=== PATIENT | female | born 1975 | race Caucasian/White ===

== ENCOUNTER 2017-04-02 14:50 | Emergency (ER) | payer OTHER ==
[~2017-04-02] VITALS: Ht 165.1 cm; Wt 70.3 kg
[~2017-04-02 14:50] MED LIST: ACETAMINOPHEN325 M1 PO; ACTICIN 5% CREA60 G1 TOP; ALBUTEROL2.5 MG/0.1 INH; ALBUTEROL2.5 MG/31 INH; AZITHROMYCIN 2250 MG PO; CALCIUM CITRAT250 MG PO; CARISOPRODOL 3350 MG PO; CIPRO250 M2 PO; CLONAZEPAM; CLONAZEPAM 1 MG1 M1 PO; DEPAKOTE ER500 MG PO; ENOXAPARIN30 MG/0.3 SUBQ; FOLIC ACID0.8 MG PO; HYDROCODONE-AP1 EAC6 PO; HYDROMORPHO1 MG/1 M4 IV PUSH; IMITREX PO; LORAZEPAM 1 MG T1 MG IV PUSH; MAXALT PO; MEDROLDOSEPACK PO; MEGA BIOTIN10000 MCG PO; MOMETASONE FURO60 ML TP; NORCO 5-325 TA1 EACH PO; ONDANSETRON HCL4 M2 PO; ONFI5 MG PO; PERCOCET 5-3251 EACH PO; PHENERGAN-CODE120 ML PO; PRAZOSIN PO; PREDNISONE 20 M20 M1 PO; PREDNISONE50 MG PO; PROTONIX40 M2 PO; ROBAXIN500 MG PO; TESSALON PERLE100 MG PO; VALIUM5 MG PO; VIMPAT1 EACH PO; VINPAT; VITAMIN B-1250 MC2 PO; VITAMIN D1000 UNI1 PO; ZOFRAN ODT4 MG PO; ZOFRAN4 MG IV PUSH; ZOFRAN4 MG PO; ZOLOFT 50 MG TA50 M1 PO; ZOMIG ZMT5 MG PO; ZONEGRAN100 MG; ZONEGRAN100 MG PO; ZPAK PO
[2017-04-02] MEDS ORDERED: CARISOPRODOL 3350 MG PO (15:22)
[2017-04-02 17:47] VITALS: BP 120/82
== END 2017-04-02 17:48 | disposition home or self-care (01) ==
LOC: M.ERS 14:50
DX: G43.909 Migraine, unspecified, not intractable, without status migrainosus (principal); G89.29 Other chronic pain; M54.5 Low back pain; Z88.1 Allergy status to other antibiotic agents; Z88.6 Allergy status to analgesic agent; Z88.5 Allergy status to narcotic agent; Z88.0 Allergy status to penicillin; Z88.8 Allergy status to other drugs, medicaments and biological substances

== ENCOUNTER 2017-08-01 20:34 | Inpatient (IN) | payer OTHER ==
[~2017-08-01] VITALS: Ht 165.1 cm; Wt 75.7 kg
[2017-08-01 20:53] VITALS: BP 112/67
[2017-08-01 20:57] LABS: URINE BILIRUBIN NEGATIVE (Negative); URINE BLOOD NEGATIVE (Negative); URINE CLARITY CLEAR; URINE COLOR YELLOW; URINE GLUCOSE-RANDOM NEGATIVE (Negative); URINE KETONES NEGATIVE (Negative); URINE LEUKOCYTES-REFLEX NEGATIVE (Negative); URINE NITRITE-REFLEX NEGATIVE (Negative); URINE PROTEIN NEGATIVE (Negative); URINE SPECIFIC GRAVITY 1.025 (1.005-1.030); URINE UROBILINOGEN 0.2 E.U./dl (0.2-1.0)
[2017-08-01 21:13] LABS: ABSOLUTE EOSINOPHILS 0.6 thou/uL (0.0-0.7); ABSOLUTE LYMPHOCYTES 2.4 thou/uL (0.8-5.3); ABSOLUTE MONOCYTES 0.6 thou/uL (0.0-1.2); ABSOLUTE NEUTROPHILS 4.9 thou/uL (1.6-8.1); BASOPHILS 0.4 %; EOSINOPHILS 7.5 %; HEMATOCRIT 37.7 % (37.0-47.0); HEMOGLOBIN 12.8 gm/dL (12.0-15.0); LYMPHOCYTES 27.9 %; MCH 31.4 pg (26.0-34.0); MCHC 33.9 g/dL (28.0-37.0); MCV 92.7 fL (80.0-100.0); MONOCYTES 7.5 %; MPV 8.2 fl. (7.2-11.1); NUCLEATED RBCS 0 /100WBC; PLATELET COUNT* 281 thou/uL (150-400); POLYS 56.7 %; RBC 4.06 mil/uL (4.20-5.00); RDW-CV 13.4 % (10.5-14.5); WBC 8.6 thou/uL (4.0-11.0)
[2017-08-01 21:20] LABS: CALCIUM 7.7 mg/dL (8.5-10.1); CREATININE 1.2 mg/dL (0.6-1.3); POTASSIUM 3.7 mmol/L (3.5-5.1)
[2017-08-01 21:25] LABS: ALBUMIN 3.9 g/dL (3.4-5.0); TOTAL BILIRUBIN 0.4 mg/dL (<0.1-1.0); TOTAL PROTEIN 6.9 g/dL (6.4-8.2)
[2017-08-01 23:19] VITALS: BP 115/74
[2017-08-01 23:20] VITALS: BP 101/68
--- NOTE | 2017-08-02 04:58 | NUR ---
PATIENT ARRIVED ON UNIT VIA ER CART AT 2320. ORIENTED TO UNIT AND CALL LIGHT. VITAL SIGNS STABLE ON ROOM AIR. IV PATENT IN THE LEFT AC INFUSING AT 100 ML/ HR. PAIN MANAGED WITH IV MEDICATION PER ORDERS. NAUSEA MANAGED WITH IV MEDICATION PER ORDERS. TRANSFERRING WITH STANDBY ASSIST TO THE RESTROOM. RESTING COMFORTABLY THROUGHOUT NIGHT. REPOSITIONING SELF IN BED. HOURLY ROUNDING COMPLETE. CALL LIGHT WITHIN REACH. NURSING WILL CONTINUE TO MONITOR.
[2017-08-02 08:00] VITALS: BP 111/80
[2017-08-02 15:36] VITALS: BP 113/74
--- NOTE | 2017-08-02 18:48 | NUR ---
ALERT AND ORIENTED X4. UP STAND BY ASSIST IN ROOM. IV IS PATENT AND INFUSING. PAIN BEING MANAGED WITH IV AND PO PAIN MEDICATION. NAUSEA BEING MANAGED WITH IV MEDICATION. PATIENT NOTICED SEVERE ITCHING AND REDDNESS ON HER ABDOMEN. PROVIDER NOTIFIED, ORDERS RECIEVED. VSS ON ROOM AIR. HOURLY ROUNDS HAVE BEEN MAINTAINED THROUGHOUT SHIFT. CALL LIGHT IS WITHIN REACH. NURSING WILL CONTINUE TO MONITOR.
[2017-08-02 20:45] VITALS: BP 130/92
[2017-08-02 23:35] VITALS: BP 102/58
--- NOTE | 2017-08-03 05:17 | NUR ---
PATIENT REMAINS ALERT AND ORIENTED X4 THROUGHOUT SHIFT. VITAL SIGNS STABLE ON ROOM AIR. PATIENT REQUESTED IV TO BE MOVED. IV PATENT IN THE RIGHT FOREARM INFUSING AT 150 ML/HR. PAIN AND NAUSEA MANAGED WITH IV AND PO MEDICATION PER ORDERS. TRANSFERS WITH STANDBY ASSIST TO THE RESTOOM. VERBALIZED DISCOMFORT IN THE RIGHT LOWER FLANK THAT RADIATED TO UMBILICAL AREA. PHYSICIAN CONTACTED. CT OF ABDOMEN COMPLETE PER ORDERS, RESULTS IN PATIENT CHART. REPOSITIONING SELF IN BED. HOURLY ROUNDING COMPLETE. BED IN LOW POSITION. CALL LIGHT WITHIN REACH. WILL CALL FOR ASSISTANCE.
[2017-08-03 08:30] VITALS: BP 121/84
[2017-08-03 10:27] LABS: ABSOLUTE EOSINOPHILS 0.2 thou/uL (0.0-0.7); ABSOLUTE LYMPHOCYTES 1.9 thou/uL (0.8-5.3); ABSOLUTE MONOCYTES 0.2 thou/uL (0.0-1.2); ABSOLUTE NEUTROPHILS 3.6 thou/uL (1.6-8.1); BASOPHILS 0.3 %; EOSINOPHILS 3.1 %; HEMATOCRIT 31.4 % (37.0-47.0); LYMPHOCYTES 31.5 %; MCH 32.2 pg (26.0-34.0); MCHC 34.6 g/dL (28.0-37.0); MCV 93.2 fL (80.0-100.0); MONOCYTES 3.9 %; MPV 8.4 fl. (7.2-11.1); NUCLEATED RBCS 0 /100WBC; PLATELET COUNT* 215 thou/uL (150-400); POLYS 61.2 %; RBC 3.37 mil/uL (4.20-5.00); RDW-CV 13.1 % (10.5-14.5); WBC 5.9 thou/uL (4.0-11.0)
[2017-08-03 10:34] LABS: CALCIUM 7.3 mg/dL (8.5-10.1); CREATININE 0.7 mg/dL (0.6-1.3); POTASSIUM 3.3 mmol/L (3.5-5.1)
[2017-08-03 10:36] LABS: HEMOGLOBIN 10.8 gm/dL (12.0-15.0)
[2017-08-03 17:26] VITALS: BP 105/75
[2017-08-03 20:45] VITALS: BP 103/60
--- NOTE | 2017-08-03 21:14 | NUR ---
ASSUMED CARES OF PT AT 0700. PT IN BED, BED IN LOW LOCKED POSITION. CALL BUTTON AND PERSONAL ITEMS IN PT REACH. PT A&O X4, HRRR PER AUSCULTATION/OCC. BRADYCARDIA EXHIBITED, LCTAB, VSS ON RA, AFEBRILE, PERRLA. SCATTERED SCARS FROM RECENT SURGERYS, SCATTERED BRUISING. FAINT RASH ON ABD AREA/ITCHY. SEIZURE PRECAUTIONS R/T HX OF SEIZURES. UP SBA/INDEPENDENT TO BATHROOM. URINE STRAINED. RIGHT FA 22 GAUGE, NS STARTED SHIFT AT 150 HR, REDUCED PER DR. RODRIGUEZ TO 100 ML/HR. KPAD FOR ABD. PAIN VERY DIFFICULT TO CONTROL, OCC. NAUSEA. PT OFTEN WEEPY AND SAD. PAIN MEDS NOT VERY EFFECTIVE THIS SHIFT. PT SCHEDULED TO HAVE KIDNEY STONE REMOVED TOMORROW MORNING. NPO AT MIDNIGHT. HOURLY ROUNDING COMPLETED. REPORT TO SMALL BATTERY PLATE ASSEMBLER FOR CONTINUED CARES. SPOUSE TO STAY THE NIGHT ON COT.
[2017-08-04 03:58] VITALS: BP 103/60
[2017-08-04 06:11] VITALS: BP 103/60
--- NOTE | 2017-08-04 06:12 | NUR ---
PATIENT HAS SLEPT WELL THROUGHOUT THE NIGHT WITHOUT ANY ISSUES. VSS ON RA. PAIN WELL CONTROLLED. MEDICATIONS GIVEN AND CHARTED. PATIENT HAS REMAINED NPO FOR PROCEDURE THIS AM. URINE STRAINED AND NO STONES RETRIEVED. IV IN RIGHT FOREARM-NS @ 100ML. PATIENT INSTRUCTED TO USE CALL LIGHT WHEN NEEDING ASSISTANCE. HOURLY ROUNDS MADE. WILL CONTINUE WITH PLAN OF CARE AND NURSING TO MONITOR.
[2017-08-04 06:47] VITALS: BP 129/81
[2017-08-04 12:26] VITALS: BP 112/79
[2017-08-04 19:30] VITALS: BP 110/76
--- NOTE | 2017-08-04 19:56 | NUR ---
PATIENT REMAINED ALERT AND ORIENTED X'S 4. VITAL SIGNS AND SPO2 STABLE. PATIENT WAS SUPPOSED TO LEAVE AFTER SURGERY BUT PAIN WAS OUT OF CONTROL. GAVE PATIENT PAIN MEDS Q.2 AND FINALLY GOT PAIN DOWN TO A TOLERABLE LEVEL. VOIDED WITHOUT ISSUE, URINE CLEAR YELLOW, NO CLOTS. TOLERATED DIET, NO NAUSEA AND VOMITING. COMPLETED HOURLY ROUNDING. CALL LIGHT WITHIN REACH. WILL CONTINUE TO MONITOR.
[2017-08-05 00:46] VITALS: BP 110/74
[2017-08-05 04:37] VITALS: BP 107/65
--- NOTE | 2017-08-05 05:45 | NUR ---
PATIENT HAS REMAINED ALERT AND ORIENTED X 4 THROUGHOUT THE SHIFT AND RESTING AT INTERVALS. HAVE UTILIZED ALL AVAILABLE PAIN TREATMENT MODALITIES TONIGHT. DILAUDID IV Q2H. VOIDING CAUSING ACUTE INCREASE IN PAIN. CRYING IF VOIDS OCCURING AT END OF THAT 2 HOURS. NOTING SPASMS AT TIMES THAT CAUSE PATIENT TO LEAK URINE. LEVSIN AND PYRIDIUM BOTH PROVIDED. TAKING ORAL FLUIDS WITHOUT NAUSEA. IVF'S PER ORDERS. URINE PINK TINGED WITHOUT STONE FRAGMENTS. MOST RECENT VOID NOW ORANGE DUE TO PYRIDIUM. DID COMPLETE ONE POST-VOID BLADDER SCAN. VOID 100 ML WITH RESIDUAL BY SCAN 17 ML. THIS SCAN WAS COMPLETED AT 0500. VITAL SIGNS STABLE. CONTINUE TO MONITOR.
[2017-08-05 08:00] VITALS: BP 123/85
[2017-08-05 16:09] VITALS: BP 106/70
--- NOTE | 2017-08-05 19:55 | NUR ---
ALERT AND ORIENTED X4. UP AD ELI IN ROOM. IV IS PATENT AND INFUSING. PAIN BEING MANAGED WITH PO AND RECTAL MEDICATION. DENIES NAUSEA. TOLERATING DIET. VSS ON ROOM AIR. HOURLY ROUNDS HAVE BEEN MAINTAINED THROUGHOUT SHIFT. CALL LIGHT IS WITHIN ROOM. CALL LIGHT IS WITHIN REACH. NURSING WILL CONTINUE TO MONITOR.
[2017-08-05 20:45] VITALS: BP 126/82
[2017-08-06 00:49] VITALS: BP 111/77
[2017-08-06 04:39] VITALS: BP 106/71
--- NOTE | 2017-08-06 08:11 | NUR ---
PATIENT HAS SLEPT WELL THROUGHOUT THE NIGHT. PAIN WELL CONTROLLED. VSS ON RA. PATIENT IS UP AD-ELI AND STEADY. NEW IV INSERTED IN RIGHT FOREARM-NS @ 100ML/HR. PATIENT INSTRUCTED TO USE CALL LIGHT WHEN NEEDING ASSISTANCE. HOURLY ROUNDS MADE. WILL CONTINUE WITH PLAN OF CARE AND NURSING TO MONITOR.
[2017-08-06 08:45] VITALS: BP 122/81
[2017-08-06] MEDS ORDERED: ACYCLOVIR 400400 MG PO (12:24)
[2017-08-06] MEDS ORDERED: HYDROCODONE-ACE15 ML PO (12:26)
[2017-08-06] MEDS ORDERED: CIPRO500 MG PO (12:28)
[2017-08-06] MEDS ORDERED: LEVSIN0.125 MG PO (13:07)
[2017-08-06] MEDS ORDERED: PHENAZOPYRIDIN200 M2 PO (13:09)
[2017-08-06] MEDS ORDERED: ZOLOFT50 MG PO (13:11)
[2017-08-06] MEDS ORDERED: MILK OF MA2400 MG/10 PO (13:14)
[2017-08-06] MEDS ORDERED: BELLADONNA-OPI1 EACH RECTAL (13:18)
[2017-08-06 13:23] VITALS: BP 122/81
[2017-08-06] MEDS ORDERED: HYDROCODONE-AP1 EAC6 PO (13:48)
[2017-08-06 14:10] VITALS: BP 122/81
--- NOTE | 2017-08-06 14:11 | NUR ---
PATIENT DISCHARGED FROM UNIT AT 1405. ALERT AND ORIENTED X 4. VITAL SIGNS STABLE ON ROOM AIR. UP AD ELI IN ROOM. IV DISCONTINUED. DENIES PAIN AND NAUSEA. DISCHARGED INSTRUCTIONS, MEDICATION INFORMATION, AND SCRIPTS GIVEN TO PATIENT. LEFT WITH ALL BELONGINGS. PATIENT DISCHARGED WITH SIGNIFICANT OTHER VIA TRUCK.
--- NOTE | 2017-08-21 13:20 | OP ---
[address] [address] OPERATIVE REPORT Name: RENY SANDOVAL Room: [address]#: [id number] Admission: 08/01/17 Attend Phys: Ramiro Hernandez Discharge: 08/06/17 Date of : 77 Report #: [id number] THIS REPORT FOR: //name// CC: Flower Arce DATE OF SERVICE: 08/04/2017 PREOPERATIVE DIAGNOSIS: Obstructing left ureterovesical junction calculus. POSTOPERATIVE DIAGNOSIS: Obstructing left ureterovesical junction calculus. PROCEDURES PERFORMED: 1. Cystoscopy with left retrograde pyelogram. 2. Left ureteroscopy with laser lithotripsy. 3. Stone retrieval. 4. Left 4.8 x 28 double-J ureteral stent placement. SURGEON: Bulmaro Figueredo MD ANESTHESIA: General endotracheal. BRIEF HISTORY: The patient is a 42-year-old female who presented to [facility] with left-sided flank pain. CT imaging demonstrated the presence of a 4 x 8 mm left ureterovesical junction calculus. After discussion of available management options, the patient elected ureteroscopic management due to persistent pain. She is scheduled for cystoscopy with left retrograde pyelogram, left ureteroscopy with laser lithotripsy, stone retrieval, and stent placement. The risks of the procedure including the risks of bleeding, infection, damage to surrounding structures, need for additional procedures, and anesthetic risks were discussed with the patient and she wished to proceed. PROCEDURE IN DETAIL: The risks and benefits of surgery were discussed with the patient and she wished to proceed. Informed consent was obtained and the patient was transferred to the operating room, where she was laid supine on the operating room table. After the induction of adequate general endotracheal anesthesia and the administration of appropriate preoperative antibiotics, the patient's legs were placed in a modified dorsal lithotomy position, taking care to pad all pressure points and avoid any hyperextension or hyperflexion of her joints. The patient's genitalia were prepped and draped in the usual sterile fashion. A timeout was then performed to ensure correct patient and procedure. At this time, a 22-Nepali cystoscope sheath with a 30-degree lens was lubricated and advanced under direct vision and irrigation through the urethra and into the bladder. A urine specimen was obtained and was passed off the table for culture and sensitivity. The cystoscope was disarticulated and the bladder was drained. Cystoscopy was performed under direct vision and [place] [address] OPERATIVE REPORT Name: RENY SANDOVAL Room: [address]#: [id number] Admission: 08/01/17 Attend Phys: Ramiro Hernandez Discharge: 08/06/17 Date of : 77 Report #: [id number] 30-degree and 70-degree lens. The patient's ureteral orifices were found to be in their normal anatomic location. There was some mild edema and erythema about the left ureteral orifice, consistent with the presence of a stone. Systematic panendoscopy revealed no gross bladder wall pathology. There were no papillary bladder tumors or suspicious mucosal lesions identified. At this time, a 5-Nepali Pollack catheter was placed into the patient's left ureteral orifice and a left retrograde pyelogram was performed. Contrast could be seen filling the distal ureter, a distance of approximately 1 cm, at which point there was a radiopaque filling defect, consistent with the stone previously observed on CT imaging. Contrast progressed beyond the stone and filled a mild to moderately ectatic mid and proximal ureter. A 0.038 ZIPwire was then advanced through the Pollack catheter and beyond the calculus until it was seen to coil within the left collecting system under fluoroscopy. The Pollack catheter and cystoscope were removed, leaving the wire in place as a safety wire. The rigid ureteroscope was then advanced under direct vision and pressure flow irrigation without difficulty into the left ureteral orifice. The patient's stone was immediately encountered and was found to be impacted within the ureteral side wall. A 365 micron laser fiber was advanced through the ureteroscope and laser lithotripsy was performed on the calculus, fragmenting it into multiple smaller pieces. Many of the fragments passed out of the ureter into the bladder in an antegrade fashion. A few remaining fragments were grasped and removed with a 0 tip nitinol basket. Once all basketable stone fragments had been removed from the distal ureter, the ureteroscope was able to be advanced to the mid ureter and beyond the iliacs. There were no basketable stone fragments identified. The ureteroscope was withdrawn back to the ureterovesical junction and similarly there were no remaining basketable stone fragments. Prior to withdrawing the ureteroscope entirely, a retrograde pyelogram was performed, which demonstrated patency and integrity of the ureter and collecting system and delineated the collecting system for stent placement. The ureteroscope was removed and a 4.8 x 28 double-J ureteral stent was advanced over the safety wire and into position. The wire was withdrawn, deploying the stent. A good coil of the stent was identified within the left renal pelvis under fluoroscopy and a good coil of the stent was identified within the bladder under direct vision with the cystoscope. The cystoscope was disarticulated and the bladder was drained. Stone fragments, which had been dropped into the bladder, were evacuated out and passed off the table for stone analysis. The patient's urethra was anesthetized with 2% lidocaine jelly and a B and O suppository was placed per rectum. The patient was then returned to a supine position, awakened from anesthesia, and transferred to the postoperative care unit in stable condition. The patient tolerated the procedure well. COMPLICATIONS: None. ESTIMATED BLOOD LOSS: Less than 5 mL. IV FLUIDS: [place] [address] OPERATIVE REPORT Name: RENY SANDOVAL Kadeem Room: [address]#: [id number] Admission: 08/01/17 Attend Phys: Ramiro Hernandez Discharge: 08/06/17 Date of : 77 Report #: [id number] DRAINS: Left 4.8 x 28 double-J ureteral stent. SPECIMENS: 1. Urine for culture and sensitivity. 2. Left ureteral calculus fragments. FINDINGS: 1. Normal bladder without gross bladder wall pathology. 2. Left retrograde pyelogram demonstrating a radiopaque filling defect of the distal ureter, 1 cm from the ureterovesical junction, consistent with the calculus previously observed on CT imaging. 3. Left ureteroscopy demonstrating an impacted left distal ureteral calculus, fragmented with laser lithotripsy and removed. 4. Left 4.8 x 28 double-J ureteral stent in good position by fluoroscopy and direct vision at the conclusion of the procedure. <ELECTRONICALLY SIGNED> By: Bulmaro Figueredo MD 08/21/17 1320 [id number] Figueredo MD /nt
== END 2017-08-06 14:05 | disposition home or self-care (01) | DRG 669 ==
LOC: M.ERS 20:34 → M.TBA-ER 22:47 → M.ORTHSURG 22:47
PROVIDERS: Nurse Practitioner Family; Physician Assistant; ADMIT Internal Medicine
PROC: 0T778DZ Dilation of Left Ureter with Intraluminal Device, Via Natural or Artificial Opening Endoscopic (ICD-10-PCS; principal; 2017-08-04)
PROC: BT1F1ZZ Fluoroscopy of Left Kidney, Ureter and Bladder using Low Osmolar Contrast (ICD-10-PCS; principal; 2017-08-04)
PROC: 0TC78ZZ Extirpation of Matter from Left Ureter, Via Natural or Artificial Opening Endoscopic (ICD-10-PCS; principal; 2017-08-04)
DX: N13.2 Hydronephrosis with renal and ureteral calculous obstruction (principal); R71.0 Precipitous drop in hematocrit; G40.909 Epilepsy, unspecified, not intractable, without status epilepticus; G89.29 Other chronic pain; M54.9 Dorsalgia, unspecified; K21.9 Gastro-esophageal reflux disease without esophagitis; F41.9 Anxiety disorder, unspecified; F32.9 Major depressive disorder, single episode, unspecified; N81.10 Cystocele, unspecified; Z87.891 Personal history of nicotine dependence; Z90.49 Acquired absence of other specified parts of digestive tract; Z88.1 Allergy status to other antibiotic agents; Z98.890 Other specified postprocedural states; Z90.710 Acquired absence of both cervix and uterus; Z88.0 Allergy status to penicillin; Z88.8 Allergy status to other drugs, medicaments and biological substances; Z98.84 Bariatric surgery status; Z79.2 Long term (current) use of antibiotics; Z79.899 Other long term (current) drug therapy; Z82.49 Family history of ischemic heart disease and other diseases of the circulatory system